=== PATIENT | male | born 1930 | race Caucasian/White ===

== ENCOUNTER → 2016-12-21 | Outpatient (CLI) | payer OTHER, MEDICARE ==
[2016-12-21 06:52] LABS: PROTIME 53.3 SECONDS (9.6-11.1)
[2016-12-21 07:01] LABS: INR - (THERAPEUTIC) 4.5 (0.9-1.1)
== END | disposition disaster alternative care site (69) ==
PROVIDERS: Internal Medicine
DX: I48.0 Paroxysmal atrial fibrillation (principal)